=== PATIENT | male | born 1965 | race African-American/Black ===

== ENCOUNTER 2024-10-20 12:44 | Emergency (ER) | payer MEDICAID ==
[~2024-10-20] VITALS: Ht 172.7 cm; Wt 97.0 kg
[2024-10-20 12:47] VITALS: PULSE 67; RESP 18; O2SAT 100
[2024-10-20 12:53] VITALS: BP 132/79; TEMP 98; O2SAT 100
[2024-10-20] MEDS ORDERED: OMEP20CA14 MT (13:39)
[2024-10-20] MEDS ORDERED: SENN-362 MT (13:39)
[2024-10-20] MEDS ORDERED: AMLO2.5T45 MT (13:39)
[2024-10-20] MEDS ORDERED: GABA-290 MT (13:39)
== END 2024-10-20 14:08 | disposition home or self-care (01) ==
LOC: ER 12:54
DX: I10 Essential (primary) hypertension (principal); Z76.0 Encounter for issue of repeat prescription; Z79.899 Other long term (current) drug therapy
CPT/HCPCS: 99281

== ENCOUNTER 2024-11-25 13:23 | Emergency (ER) | payer MEDICAID ==
[~2024-11-25] VITALS: Ht 175.3 cm; Wt 112.0 kg
[~2024-11-25 13:23] MED LIST: AMLO2.5T45 MT; GABA-290 MT; OMEP20CA14 MT; SENN-362 MT
[2024-11-25 13:41] VITALS: BP 142/81; RESP 16; TEMP 98.9; O2SAT 98
[2024-11-25 13:50] VITALS: PULSE 71; O2SAT 98
[2024-11-25] MEDS ORDERED: GABA-290 MT (14:16)
[2024-11-25] MEDS ORDERED: SENN-362 MT (14:16)
[2024-11-25] MEDS ORDERED: OMEP20CA14 MT (14:16)
[2024-11-25] MEDS ORDERED: AMLO2.5T45 MT (14:16)
== END 2024-11-25 16:53 | disposition home or self-care (01) ==
LOC: ER 13:30
DX: I10 Essential (primary) hypertension (principal); Z76.0 Encounter for issue of repeat prescription; Z79.899 Other long term (current) drug therapy; Z98.890 Other specified postprocedural states
CPT/HCPCS: 99281